=== PATIENT | male | born 1935 | race Caucasian/White ===

== ENCOUNTER 2017-04-07 17:00 | Inpatient (IN) | payer MEDICARE, BC ==
[~2017-04-07] VITALS: Ht 175.3 cm; Wt 70.0 kg
--- NOTE | ~2017-04-07 | HP ---
PATIENT'S NAME: ALEXANDR MACIAS [facility] AGE: 81 Y [address] ROOM: [address] [address] LOCATION: [facility] ADMIT DATE: 04/07/2017 History & Physical DISCHARGE DATE: FAMILY PHYSICIAN: PHYSICIAN, UNKNOWN ATTENDING PHYSICIAN: TERI HARRISON DATE OF SERVICE: CHIEF COMPLAINT: Transfer for a left femoral neck fracture. HISTORY OF PRESENT ILLNESS: The patient is an 81-year-old male who has sustained a mechanical fall while getting out of his pickup truck earlier today. He was found to have a left femoral neck fracture and was transferred to [facility] from [place] for surgical intervention. An admission/consultation was requested by Orthopedic Service for preoperative optimization. The patient unfortunately is not a very good historian. At this point, I think he has gotten some opioids for his pain. 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 Of note, the patient was worked up for "possible heart attack" in [place] 3-4 weeks ago though we do not have the results of that workup. He denies ever developing chest pain, and shortness of breath is achieved with vigorous exercise. REVIEW OF SYSTEMS: He denies any nausea, vomiting, shortness of breath, or palpitations. All systems have been reviewed and negative aside from pertinent positives mentioned above. PAST MEDICAL HISTORY: This is incomplete as the patient is not a very good historian. 1. He has prostate cancer, status post seed implantation. 2. "Arthritis," for which the patient is on prednisone. 3. A recent left total knee arthroplasty in [place]. SOCIAL HISTORY: The patient has never been a smoker and has never been a drinker and denies any other toxic habits. FAMILY HISTORY: PATIENT'S NAME: ALEXANDR MACIAS [facility] AGE: 81 Y [address] ROOM: [id number] [place], [place] [address] LOCATION: [facility] ADMIT DATE: 04/07/2017 History & Physical DISCHARGE DATE: FAMILY PHYSICIAN: PHYSICIAN, UNKNOWN ATTENDING PHYSICIAN: TERI HARRISON Reviewed and is noncontributory due to advanced age. CURRENT MEDICATIONS ARE: 1. Crestor. 2. Prednisone 5 daily. 3. Pantoprazole. 4. [place]-3 fatty acids. 5. Ascorbic acid. 6. Aspirin. 7. Calcium carbonate. 8. Cholecalciferol. 9. Dicyclomine. 10. Escitalopram. PHYSICAL EXAMINATION: VITAL SIGNS: Temperature 98.7, pulse 79, respirations 16, and saturating 93% on room air. Blood pressure was initially 181/92, but came down to 150/60 with IV morphine for his pain. GENERAL APPEARANCE: A well-developed, well-nourished, elderly male, looks younger age than stated, in no acute distress. NEUROLOGIC: Nonfocal. EYES: Pupils are equal and reactive to light. LYMPHATIC: No cervical lymphadenopathy. ENDOCRINE: No thyromegaly. LUNGS: Clear to auscultation in all shields. HEART: Regular. No appreciable murmurs, gallops, or rubs. ABDOMEN: Soft, nontender, nondistended. : No costovertebral angle tenderness. VASCULAR: 2+ pedal pulses. MUSCULOSKELETAL: Deferred. SKIN: Warm and dry. PSYCHIATRIC: Appropriate mood, cognition, and affect. STUDIES: No studies are available as of yet. ASSESSMENT AND PLAN: This is an 81-year-old male who is admitted with: 1. A mechanical fall and left femoral neck fracture. Prior to proceeding with surgery, I think it would be worthwhile to review the details of his hospitalization in [place]. We will also get an EKG, a chest x-ray, and routine labs. I think if these are unremarkable and once his hospitalization [place] is reviewed, we can proceed with surgery tomorrow. As such, we will keep the patient n.p.o. 2. Chronic steroid dependence. Will continue prednisone. We will monitor for any development of PATIENT'S NAME: ALEXANDR MACIAS [facility] AGE: 81 Y [address] ROOM: [address] [address] LOCATION: [facility] ADMIT DATE: 04/07/2017 History & Physical DISCHARGE DATE: FAMILY PHYSICIAN: , UNKNOWN ATTENDING PHYSICIAN: TERI HARRISON adrenal insufficiency and treat him if need be. 3. Accelerated hypertension. This is likely related to pain/stress of being in the hospital. We will control his blood pressure as needed if the pain control is inadequate. Additional management depend on clinical course. Time dedicated to this patient's encounter is 25 minutes. MD JAMES PEREIRA/aleksander /[id number] D: [id number] T: [id number] HISTORY & PHYSICAL
--- NOTE | ~2017-04-07 | OR ---
PATIENT'S NAME: ALEXANDR MACIAS [facility] AGE: 81 Y [address] ROOM: [place] [address] LOCATION: [facility] ADMIT DATE: 04/07/2017 OR/Procedure Report DISCHARGE DATE: FAMILY PHYSICIAN: PHYSICIAN, UNKNOWN ATTENDING PHYSICIAN: TERI HARRISON SURGEON: Ajay Perdomo MD SISAL OPERATOR: None. DATE OF PROCEDURE: 04/08/2017 PREOPERATIVE DIAGNOSIS: Left displaced basicervical fracture of the proximal femur. POSTOPERATIVE DIAGNOSIS: Left displaced basicervical fracture of the proximal femur. PROCEDURES PERFORMED: 1. Left femoral intramedullary nailing. 2. Use of intraoperative fluoroscopy, less than one hour. ANESTHESIA: General endotracheal anesthesia. FLUIDS: See anesthesia report. ESTIMATED BLOOD LOSS: Less than 50 mL. TOURNIQUET: None. SPECIMENS: None. COMPLICATIONS: None. DISPOSITION: Stable, in PACU. COUNTS: All counts were correct. IMPLANTS: Synthes trochanteric fixation nail, 11 mm diameter, 235 mm in length, with proximal lag screw and distal interlocking screw. INDICATIONS: Mr. Macias is a pleasant, 81-year-old gentleman who underwent the noted procedure above. The risks, benefits, and alternatives to pursuing surgical intervention were discussed with the patient in detail. He elected to proceed with surgery. It was discussed with him and his family. Informed consent was obtained. Anesthesia was consulted for their perioperative evaluation of the patient. I marked the left lower extremity, indicating the correct surgical site. PATIENT'S NAME: ALEXANDR MACIAS [facility] AGE: 81 Y [address] ROOM: [place] [address] LOCATION: [facility] ADMIT DATE: 04/07/2017 OR/Procedure Report DISCHARGE DATE: FAMILY PHYSICIAN: PHYSICIAN, UNKNOWN ATTENDING PHYSICIAN: TERI HARRISON DESCRIPTION OF PROCEDURE: The patient was taken from the holding area to the operating room. A time-out was performed. General endotracheal anesthesia was administered. The patient was positioned on the [place] table. A closed reduction of the hip was undertaken under fluoroscopy. The left lower extremity was then prepped and draped in a sterile fashion. A final time-out was performed. Ancef antibiotic was administered for perioperative prophylaxis. I began by introducing a wire into the tip of the greater trochanter. It was in a center-center position, confirmed fluoroscopically. I then made an incision 3 fingerbreadths proximal to the tip of the greater trochanter. This incision was carried through skin, subcutaneous tissue, muscle, and fascia, down to bone. I then introduced my opening reamer. I then placed my femoral nail. I confirmed the position of my nail fluoroscopically. I then made an incision distally for my pin for the purposes of measuring and positioned my lag screw. I confirmed that the fracture was reduced, and I confirmed the position of the lag screw, subsequently measured it, over drilled it, and placed my lag screw. I then placed my set screw at the top of the nail. I then compressed through the nail using a Robe bar. I received a near-anatomic reduction of the proximal femur fracture. I then turned my attention to the distal interlocking screw in the nail. I made a skin incision. I subsequently introduced the jig, drilled for, measured, and placed my distal interlocking screw. The jig was removed from the nail. Final fluoroscopic images of the hip revealed evidence of a near-anatomic femoral intramedullary nailing of the hip fracture. The wounds were then copiously irrigated with a normal sterile saline solution. These were then closed in layers. A Mepilex dressing was placed over the incisions. The patient was then transferred from the operating room table onto the stretcher and extubated. He was brought to the recovery room in stable condition. There were no intraoperative complications noted. IMPRESSION: The patient is status post the noted procedures above. PATIENT'S NAME: ALEXANDR MACIAS [facility] AGE: 81 Y [address] ROOM: [address] [address] LOCATION: [facility] ADMIT DATE: 04/07/2017 OR/Procedure Report DISCHARGE DATE: FAMILY PHYSICIAN: PHYSICIAN, UNKNOWN ATTENDING PHYSICIAN: TERI HARRISON PLAN: The patient will be toe-touch weightbearing on the left lower extremity. He will be instructed to rest, ice, and elevate the leg otherwise. The hospitalist will continue to manage the patient's concomitant medical comorbidities. Postoperative antibiotics will be administered per routine. Physical Therapy and Occupational Therapy will be consulted for early ambulation and prevention of deconditioning. I will continue to monitor the patient closely in the postoperative period. MD ROGELIO BUENO/aleksander /[id number] d: 04/08/17 1456 t: 04/11/17 0831, OPERATIVE SUMMARY
--- NOTE | ~2017-04-07 | DS ---
PATIENT'S NAME: ALEXANDR MACIAS [facility] AGE: 81 Y [address] ROOM: [address] [address] LOCATION: [facility] ADMIT DATE: 04/07/2017 Discharge Summary DISCHARGE DATE: 04/12/2017 FAMILY PHYSICIAN: Evan Jose MD ATTENDING PHYSICIAN: Ajay Perdomo ADMITTING DIAGNOSIS: Left mildly displaced basicervical fracture of the proximal femur. DISCHARGE DIAGNOSIS: Left mildly displaced basicervical fracture of the proximal femur. SECONDARY DIAGNOSES: 1. History of prostate cancer. 2. Osteoarthritis. 3. Prior left tibial fracture with tibial intramedullary nailing. CONSULTATION SERVICE: To the hospitalist for medical management. PROCEDURES: On April 08, 2017, the patient underwent the following procedure by Dr. Perdomo, left femoral intramedullary nailing. DISCHARGE STATUS: Good. HISTORY OF PRESENT ILLNESS: The patient is a pleasant 81-year-old male who sustained a mechanical fall while getting out of his pickup truck earlier in the day. He fell onto his left side. He was transferred to [facility] from [place] for his definitive orthopedic care. Here, he reported pain at the left hip, pain with movement of the hip, discomfort with attempted range of motion and weightbearing. Relieving factors include rest, ice, elevation, and immobilization. When seen, the patient denied any constitutional symptoms such as fevers, chills, or night sweats. He also denied any dizziness, chest pain, shortness of breath, blurred vision, nausea, vomiting, or diarrhea. He denied any previous surgery to his left hip or femur, though he does note that he had a left tibial intramedullary nailing with compartment releases of his left leg from previous tibial fracture and compartment syndrome in the left lower extremity. He reports he made a full recovery from this. He was seen by Dr. Roberts for evaluation of his left hip. HOSPITAL COURSE: The patient underwent the above prescribed procedure and tolerated the procedure well. During his hospitalization, the patient did have some acute delirium that was felt to be multifocal. He did have his medications adjusted and was treated medically during his hospitalization. The hospitalist did treat him medically during his hospitalization. The PATIENT'S NAME: ALEXANDR MACIAS [facility] AGE: 81 Y [address] ROOM: [address] [place], [place] [address] LOCATION: [facility] ADMIT DATE: 04/07/2017 Discharge Summary DISCHARGE DATE: 04/12/2017 FAMILY PHYSICIAN: Evan Jose MD ATTENDING PHYSICIAN: Ajay Perdomo patient was felt to be stable for transfer to the [facility] Bed on April 12, 2017, and was transferred at that time. MEDICATIONS: Continued medications: 1. Ascorbic acid 500 mg 3 times a day. 2. Aspirin 81 mg p.o. daily. 3. Calcium 500 mg p.o. t.i.d. 4. [place]-3 fatty acid 1000 mg p.o. daily. 5. Protonix 40 mg p.o. daily. 6. Prednisone 5 mg p.o. daily. 7. Crestor 10 mg p.o. daily. 8. Dicyclomine 20 mg 4 times per day. 9. Vitamin D3, 2000 units p.o. daily. 10. Escitalopram 10 mg p.o. daily. New medications: 1. Acetaminophen 500 mg p.o. daily p.r.n. pain. 2. Lovenox 40 mg subcu daily. 3. Seroquel 25 mg p.o. at h.s. 4. Dulcolax 10 mg as needed for constipation. 5. Milk of magnesia 30 mL p.o. as needed for constipation. 6. Seroquel 25 mg every 6 hours as needed p.r.n. anxiety. 7. Ultram 50 mg 1-2 tabs every 4 hours as needed for pain. DISCHARGE INSTRUCTIONS: The patient is to follow up with Dr. Perdomo in 2 weeks. He is to be toe-touch weightbearing. He is to undergo physical therapy and occupational therapy. He is to have CBC and BMP on April 13, 2017. Diet is as tolerated. The patient was transferred to the [facility] Bed on April 12, 2017, in good condition. MARTIN HARRISON PA-C FOR MD BILLY BUENO/aleksander /[id number] d: 04/30/17 0302 t: 05/02/17 1846, DISCHARGE SUMMARY
--- NOTE | ~2017-04-07 | HP ---
PATIENT'S NAME: ALEXANDR ALVARADO [facility] AGE: 81 Y [address] ROOM: [place] [address] LOCATION: [facility] ADMIT DATE: 04/07/2017 History & Physical DISCHARGE DATE: FAMILY PHYSICIAN: PHYSICIAN, UNKNOWN ATTENDING PHYSICIAN: TERI HARRISON DATE OF SERVICE: 04/08/2017 CHIEF COMPLAINT: Left hip and groin pain. HISTORY OF PRESENT ILLNESS: Mr. Alvarado is a pleasant 81-year-old, gentleman, who sustained a mechanical fall while getting out of this pickup truck earlier today. He fell onto his left side. He was transferred to [facility] from [place] for his definitive orthopedic care. He reports pain at the left hip, pain with movement of the hip, discomfort with attempted range of motion and weightbearing. Alleviating factors include rest, ice, elevation, and immobilization. Currently, the patient denies any constitutional symptoms such as fever, chills, or night sweats. He also denies any dizziness, chest pain, shortness of breath, blurred vision, nausea, vomiting, or diarrhea. He denies any previous surgery to the left hip or femur, though notes that he did have a tibial intramedullary nailing with compartment release of the leg from previous tibia fracture and compartment syndrome in the left lower extremity. He reports making a full recovery from this. He is here today for evaluation of the left hip. REVIEW OF SYSTEMS: A 10-point review of system is otherwise as mentioned above in the HPI. The patient's issue is musculoskeletal, and it pertains to his left lower extremity. There is pain and tenderness to palpation at the level of the left hip. PAST MEDICAL HISTORY: Prostate cancer, osteoarthritis, previous left tibia fracture and underwent tibial intramedullary nailing approximately 3 or 4 years ago with compartment release of the leg. SOCIAL HISTORY: The patient denies any alcohol, tobacco, or illicit drug use. He lives at home with his . He reports that he is an independent ambulator at baseline. FAMILY HISTORY: There is hypertension on both sides of the family. PATIENT'S NAME: ALEXANDR ALVARADO [facility] AGE: 81 Y [address] ROOM: [place] [address] LOCATION: [facility] ADMIT DATE: 04/07/2017 History & Physical DISCHARGE DATE: FAMILY PHYSICIAN: PHYSICIAN, UNKNOWN ATTENDING PHYSICIAN: TERI HARRISON ALLERGIES: NO KNOWN DRUG ALLERGIES. CURRENT MEDICATIONS: 1. Crestor. 2. Prednisone. 3. Pantoprazole. 4. [place]-3 fatty acid. 5. Ascorbic acid. 6. Aspirin. 7. Calcium carbonate. 8. Cholecalciferol. 9. Dicyclomine. 10. Escitalopram. PHYSICAL EXAMINATION: VITAL SIGNS: Temperature 98.7, pulse 79, respirations 16, saturation 93% on room air, blood pressure 150/60. GENERAL APPEARANCE: He is awake, alert, and oriented x3. He is in no acute distress. He is actively conversing with me at the bedside. HEENT: Normocephalic and atraumatic. Extraocular movements are intact. PERRLA. Moist mucous membranes. Oropharyngeal airway is clear. NECK: Supple. Trachea is in the midline. CARDIOVASCULAR: Regular, rate, and rhythm. ABDOMEN: Soft, nontender, and nondistended. CHEST: Normal and symmetric respirations observed bilaterally. PELVIS: Stable. MUSCULOSKELETAL: Left lower extremity: Focal examination of the patient's left lower extremity reveals that he is grossly neurologically intact distally. Compartments of the thigh, leg, and foot are soft. There is tenderness to palpation at the level of the greater trochanter and at the level of the groin. There is a positive log roll test. There is pain with manipulation of the limb. They are well-healed surgical incisions over the leg and consistent with previous tibial intramedullary nailing as well as compartment releases. There is full dorsiflexion, plantar flexion, and full strength at the ankle and foot. There is good capillary refill in the toes. There is palpable dorsalis pedal and posterior tibial pulses. IMAGING: Plain radiographs of the left hip revealed evidence of a basicervical fracture of the femoral neck with some displacement. LABORATORY VALUES: CBC: Hemoglobin of 12.2, hematocrit of 36.3, white blood cell count of 8.6, PATIENT'S NAME: ALEXANDR ALVARADO [facility] AGE: 81 Y [address] ROOM: [place] [address] LOCATION: [facility] ADMIT DATE: 04/07/2017 History & Physical DISCHARGE DATE: FAMILY PHYSICIAN: PHYSICIAN, UNKNOWN ATTENDING PHYSICIAN: TERI HARRISON and platelet count of 162. Chem 7: Sodium 141, potassium 4.4, chloride 108, CO2 27, BUN 20, creatinine 1.2, glucose 94. IMPRESSION: Left, mildly displaced, basicervical fracture of the proximal femur. PLAN: I had a long discussion with the patient in the presence of his family regarding his left hip. He sustained a left hip fracture. I am recommending an open reduction and internal fixation, and femoral intramedullary nailing to stabilize the hip. I discussed the risks, benefits, and alternatives of pursuing the surgical intervention with the patient and his family in detail. I discussed the risks and benefits of anesthesia, infection, bleeding, and/or injury to neurovascular structures about the left lower extremity. They expressed understanding of this. Informed consent was obtained, and the patient was elected to proceed with surgery. The hospitalist has seen and evaluated the patient. The patient should be medically cleared hopefully later this morning. He does have a remote cardiac history that had been worked up in [place] that appeared to have been ruled out. We are awaiting the records for the hospitalist to review. The patient will remain on bedrest at this point. Pain control will be in the form of Percocet and IV morphine as needed for pain. Preoperative antibiotics in the form of Ancef will be on- call to the OR. We will plan for surgery as soon as possible this morning. I have answered all the patient's questions and family's questions at the bedside this morning to their satisfaction. MD ROGELIO BUENO/aleksander /[id number] D: [id number] T: [id number] HISTORY & PHYSICAL
[2017-04-07] MEDS ORDERED: ASCORBIC ACID500 MG PO (20:33)
[2017-04-07] MEDS ORDERED: BAYER CHILD81 MG PO (20:34)
[2017-04-07] MEDS ORDERED: CRESTOR10 MG PO (20:49)
[2017-04-07] MEDS ORDERED: DICYCLOMINE HCL20 MG PO (20:51)
[2017-04-07] MEDS ORDERED: PROTONIX40 MG PO (20:52)
[2017-04-07] MEDS ORDERED: DELTASONE5 MG PO (20:53)
[2017-04-07] MEDS ORDERED: VITAMIN D-32000 UNI1 PO (20:53)
[2017-04-07] MEDS ORDERED: FISH OIL 1,0001 EACH PO (20:54)
[2017-04-07] MEDS ORDERED: OSCAL500 MG PO (20:54)
[2017-04-07] MEDS ORDERED: ESCITALOPRAM OX20 MG PO (20:55)
[2017-04-08 00:28] LABS: BASOPHIL % 0.5 %; EOSINOPHIL # 0.1 K/uL (0.0-0.5); EOSINOPHIL % 0.8 %; HEMATOCRIT 36.3 % (33.0-50.0); HEMOGLOBIN 12.2 g/dL (11.0-16.0); IMMATURE GRANULOCYTE % 0.5 %; LYMPHOCYTE # 1.1 K/uL (0.8-4.0); LYMPHOCYTE % 12.8 %; MCH 33.5 pg (27.0-34.0); MCHC 33.6 gm/dL (32.0-36.5); MCV 99.7 fl (83.0-98.0); MONOCYTE # 0.9 K/uL (0.0-1.0); MONOCYTE % 10.2 %; MPV 9.2 fl (9.4-12.4); NEUTROPHIL # (ANC) 6.5 K/uL (1.4-9.0); NEUTROPHIL % 75.2 %; NRBC % 0 /100WBC (0-0.00); PLATELET COUNT 162 K/uL (150-450); RBC 3.64 M/uL (3.50-5.50); RDW-CV 13.3 % (11.9-14.6); WBC 8.6 K/uL (4.0-11.0)
[2017-04-08 00:37] LABS: ANION GAP 10.4 (10.0-19.0); CALCIUM 8.1 mg/dL (8.5-10.5); CREATININE 1.2 mg/dL (0.6-1.3); MAGNESIUM 2.5 mg/dL (1.8-2.6); PHOSPHORUS 2.5 mg/dL (2.5-4.9); POTASSIUM 4.4 mMol/L (3.7-5.1)
--- NOTE | 2017-04-08 04:42 | NUR ---
Patient is alert and oriented x3, fell out of his pickup and has has fracture to the left hip, pain with movement, csm with in normal limits, has been taking Narco for pain control, uses urinal to void is on bedrest, not cleared for surgery,has been hypertensive since arrival, has rested well tonight
--- NOTE | 2017-04-08 04:47 | NUR ---
Patient arrived on floor at 1930 from the EMS transport, originally was in [place], he fell as he was getting out of his pickup, fractured his left hip, drove himself to the hospital, no known allergies, and daughter staying here in town, is not yet cleared for surgery
--- NOTE | 2017-04-08 16:35 | NUR ---
Introduced self and care management services to patient, and granddaughters at bedside. Lives in [place], would like to go to [facility] on discharge, will transport if able to go by vehicle. Called [facility] and left referral voicemail [phone] for Charo Vargas with info and faxed referral to her as well [phone]. [facility] will followup with her on Tuesday, pt sees Dr Jose in [place].
--- NOTE | 2017-04-08 17:22 | NUR ---
Significant Event: Off unit fro [id number]. Dressings to L) hip with marked drainage. No void since return from PACU. CSM WNL. TTWB to L) leg. [place] 1 tab last at 1600, Morphine 2mg IVP last at 1345. Moderate BM this am. Has not been out of bed at this time. Follow up:
[2017-04-08 21:24] LABS: BILIRUBIN URINE NEGATIVE (NEGATIVE); BLOOD URINE NEGATIVE /UL (NEGATIVE); COLOR URINE AMBER (YELLOW); GLUCOSE URINE NEGATIVE (NEGATIVE); KETONE URINE 15 mg/dL (NEGATIVE); LEUKOCYTES URINE 100 /UL (NEGATIVE); NITRITE URINE POSITIVE (NEGATIVE); PROTEIN URINE 30 mg/dL (NEGATIVE); UROBILINOGEN URINE 1 mg/dL (NORMAL)
[2017-04-08 21:28] LABS: TURBIDITY URINE CLEAR (CLEAR)
[2017-04-08 21:30] LABS: BACTERIA URINE MANY (NEGATIVE); MUCUS URINE 1+ (NEGATIVE); RBC URINE NEGATIVE #/HPF (NEGATIVE)
[2017-04-08 21:31] LABS: WBC CLUMPS URINE FEW (NEGATIVE)
--- NOTE | 2017-04-09 05:17 | NUR ---
Significant Event: Oriented X3 at beginning of shift. Increased confusion noted throughout night. Pt disoriented to place, once reoriented to GSH, pt isn't able to recall the reason he is here. Reoriented frequently. Oriented to person and time. Pt does try to hide confusion by answering "yes/no" to questions. Voided x 2 small amounts of beginning of shift, bladder scan for 414 ml. Straight cath attempted multiple times with no success. MD notified, would like us to wait to attempt straight cath until bladder scan >700. Pt has sense voided another 175 ml, total of 275 ml out this shift. Bladder scan this am of 318 ml. Urine herminia in color. IV fluids continue to run at 80 ml/hr. CSM WNL, denies numbness tingling. Dressing has moderate amount of bloody drainage. Large hematoma, increasing slowly in size to L) hip. Repositions without difficulty. Ice to hip. Was up to bedside with 2 person assist, gait belt and walker. TTWB. Pt was unsteady. Trying to only given Tylenol for pain, tolerating pain well. On 2L 02, takes off nasal cannula frequently. Follow up: Monitor urine output.
[2017-04-09 05:57] LABS: HEMOGLOBIN 8.7 g/dL (11.0-16.0)
[2017-04-09 06:01] LABS: HEMATOCRIT 26.8 % (33.0-50.0)
[2017-04-09 17:31] LABS: HEMATOCRIT 29.9 % (33.0-50.0); HEMOGLOBIN 9.7 g/dL (11.0-16.0)
--- NOTE | 2017-04-09 17:32 | NUR ---
Significant Event: Pt Aox3. Was confused last night. IV intact. VSS, CSM WNL. TTWB L). Up with one assist, walker and gait belt. Takes PO well. Pain well controlled. Voids without difficulty and had moderate BM this shift. Large hematoma to left hip, Lovenox held for today. HgB at 1700, call results. Dressing D/I. Would like to go to SNF instead of home. Push IS. Follow up:
--- NOTE | 2017-04-10 04:01 | NUR ---
Patient is alert and orientated to self, can be very confused at times, at 0130 heard patient in room due to being in room down the dobbs, when i got to the patients room he was sitting on floor and the bed alarm sounded,three side rails were up on the bed, patients feet were under the bed and he was facing the bed, no apparent injuries, patient assisted back to bed using the lift, notified daughter Katy of fall, also notified both DR SOTO who ordered 12.5mg of seroquel times one which was given and notified DR THORNTON who ordered and xray of the hip to bed done in the morning, patient has no complaints of pain. csm with in normal limits, is very anxious and figets alot, a second bed alarm was placed in his bed and he will need to be moved closer to the nurses station when a bed is available
[2017-04-10 05:31] LABS: BASOPHIL % 0.5 %; EOSINOPHIL # 0.2 K/uL (0.0-0.5); EOSINOPHIL % 2.7 %; HEMATOCRIT 26.3 % (33.0-50.0); HEMOGLOBIN 8.5 g/dL (11.0-16.0); IMMATURE GRANULOCYTE # 0.1 K/uL (0.0-0.3); IMMATURE GRANULOCYTE % 0.6 %; LYMPHOCYTE % 10.7 %; MCH 32.8 pg (27.0-34.0); MCHC 32.3 gm/dL (32.0-36.5); MCV 101.5 fl (83.0-98.0); MONOCYTE # 0.9 K/uL (0.0-1.0); MONOCYTE % 9.6 %; MPV 9.1 fl (9.4-12.4); NEUTROPHIL # (ANC) 6.7 K/uL (1.4-9.0); NEUTROPHIL % 75.9 %; NRBC % 0 /100WBC (0-0.00); PLATELET COUNT 132 K/uL (150-450); RDW-CV 13.5 % (11.9-14.6); WBC 8.8 K/uL (4.0-11.0)
[2017-04-10 05:32] LABS: RBC 2.59 M/uL (3.50-5.50)
--- NOTE | 2017-04-10 09:22 | NUR ---
Significant Event: Pt Alert but not oriented to place or time. Fell last night. Fall precautions in place. Up in recliner with Tabs monitor and is at her side. wants a brain scan to see if he has alzheimers. Left hip still has large hematoma, dressing has marked drainage. Foot pumps on. Taking PO well. Up with one assist, walker and gait belt. Plans to transfer to SNF when placement is made. Wants Jody MALONE Follow up:
--- NOTE | 2017-04-10 15:39 | NUR ---
Significant Event:Took over cares at 1000. Refuses need for pain meds. Dressing to left hip d/i with old drainage noted. Up with 1 assist. Very confused most of the time. Bed alarm on at all times. Moved to room 3204 to be closer to the nurses station. at bedside but she worries his confusion is worse when she is here. Follow up:
--- NOTE | 2017-04-11 04:12 | NUR ---
Patient very confused and anxious only orientated to self, trys to get out of bed repeatedly had a fall the previous night, was given 50mg of seroquel this evening which didnt seem to help and then at 2300 was given 1mg of ativan which calmed him down and he has been resting well, dressings to hip have old bloody drainage present, he has a large hematoma to hip, side, groin and nimco area from surgery, csm with in normal limits, pain has been under control taking percocet for pain,
[2017-04-11 05:31] LABS: BASOPHIL % 0.3 %; EOSINOPHIL # 0.2 K/uL (0.0-0.5); EOSINOPHIL % 2.5 %; HEMATOCRIT 24.9 % (33.0-50.0); HEMOGLOBIN 8.1 g/dL (11.0-16.0); IMMATURE GRANULOCYTE # 0.1 K/uL (0.0-0.3); IMMATURE GRANULOCYTE % 1.1 %; LYMPHOCYTE % 11.9 %; MCH 33.3 pg (27.0-34.0); MCHC 32.5 gm/dL (32.0-36.5); MCV 102.5 fl (83.0-98.0); MONOCYTE % 12.1 %; MPV 8.9 fl (9.4-12.4); NEUTROPHIL # (ANC) 5.7 K/uL (1.4-9.0); NEUTROPHIL % 72.1 %; NRBC % 0 /100WBC (0-0.00); PLATELET COUNT 141 K/uL (150-450); RBC 2.43 M/uL (3.50-5.50); RDW-CV 13.7 % (11.9-14.6)
--- NOTE | 2017-04-11 10:49 | NUR ---
Reviewed chart and called and faxed update to referral I made to Charo at [facility]. She will review all the information and let me know if they can accept tomorrow or whenever ready for discharge. Dr Jose is pt physician in [place].
--- NOTE | 2017-04-11 15:49 | NUR ---
Called Charo at [facility], asked how pt did with therapy today, ready therapy note to her, disoriented to place and time, was CGA and went 15 feet with TTWB, gait belt and front wheeled walker. Charo said she will talk with Dr Jose in the morning but if confusion improved tonight and tomorrow am they will accept tomorrow. I will put Dr Jose's number on the chart for physician to call tomorrow, I will call Charo in the morning to review pt chart.
--- NOTE | 2017-04-11 16:45 | NUR ---
Pt is alert, oriented but forgetful. He is much better than his restlessness, confusion this morning. He is on O2 at 2 Liters. RT is doing a respiratory therapay severity scoring this afternoon. He can have serequel prn. He has been cooperative today. Has sensitive tabs alarm and movement in bed sets it off. Bed alarm also on. Pt likes to sit on edge of bed to urinate in urinal. He is incontinent if it takes too long. He is TTWB on left. VS are stable. Changed to tramadol for pain and had it at noon. States comfortable now. Left hip has 2 mepilex dressings on that were changed this AM. They are mostly saturated at this time. He has a large hematoma to hip, thigh and has ecchymosis penis. He has been up chair x2 with 2 asst and pivot transfer. He uses IS at 1500. He is high fall risk from fall 2 days ago. Hip xray done at that time that Dr Mcgraw said was ok. Pt will possibly go to [facility] tomorrow if he has an ok night per case assembler. Pts has been here most of shift.
--- NOTE | 2017-04-12 03:54 | NUR ---
Pt. alert but not always oriented to time or place. RA. Been spot checking O2 as it rides close to 90%. Did not use O2 this shift. VSS. HIGH fall risk - bed alarm on and plugged into outlet with 3 bedsides up. 2 assist with pivot - toe touch weight bearing. Uses urinal at bedside. Regular diet. L) Hip has 2 mepilex dressings on - changed this shift. Very large hematoma on his left hip as well. Leaking IV - No IV access per MD order. Pt. will most likely transfer to [place] today. Cooperative this shift. Slept well throughout night.
[2017-04-12 05:30] LABS: HEMATOCRIT 24.7 % (33.0-50.0); HEMOGLOBIN 8.2 g/dL (11.0-16.0)
--- NOTE | 2017-04-12 10:17 | NUR ---
Called and left voicemail for Charo at [facility] that pt had a better night and provided update from shift summary last night and that he is ready to come to [facility] today if they will accept. Waiting call back from her.
--- NOTE | 2017-04-12 12:28 | NUR ---
A-SCREENED D/T LOS; S/P L)HIP FX. POSSIBLE TO D/C TO [facility] TODAY HT: 69 IN. WT: 70.0 KG. BMI: 22.8 LABS REVIEWED MEDS: VIT C, SEROQUEL, ULTRAM, PRN BOWEL MEDS, MORPHINE, DELTASONE, PROTONIX DIET RX: REGULAR. PO INTAKE 50-100% EST NUTR NEEDS: 0924-8124 KCALS (25-30 KCALS/KG) 70-84 GM PROTEIN (1.0-1.2 GM/KG) 1 ML FLUID/KCAL D-NOT AT NUTRITION RISK; NO NUTRITION DX IDENTIFIED I-CONTINUE W/CURRENT DIET RX M/E-WILL ASSIST NEEDED
--- NOTE | 2017-04-12 13:33 | NUR ---
Talked with Camila Duggan APRN and she called Dr Jose who accepted. I talked with Charo at [facility] and she talked with Dr Jose also and they are okay to accept. I called Dr Perdomo, he is okay with pt going to [facility] today and does not need to see pt before he leaves, would like to see him in 2 weeks as outpt. Will put that on dc orders. I called Dr Greene and he is on his way over to see pt to finish dc orders. Gave phone number to nurse to call charge nurse at [facility]. Pt and still want him to transport via ambulance, feel with his ttwb will be safer. I called NITZA gracia, she did some adjusting of ambulance crews transporting patients and [facility] ambulance crew is here and will take patient back to [facility] when ready, should be ready within the hour.
--- NOTE | 2017-04-12 14:04 | NUR ---
PT ADMIT ON 04/07, L HIP FX. HAD A FALL GETTING OUT OF TRUCK. ON 04/08 L HIP NAILING, TFN. ALSO HAD A FALL ON 04/10 WHILE HOSPITALIZED. MEPILEX DRESSING TO L HIP, SOME SHADOW DRAINAGE. CHANGED BY WALKING DRAGLINE OPERATOR. LARGE HEMATOMA TO L HIP. PT IS TTWB TO LLE, AMBULATES WITH 1PA, GAITBELT AND WALKER. PRN MILK OF MAG GAVE THIS AM WITH SMALL RESULTS SO FAR. PRN ULTRAM FOR PAIN AT 0921, RELIEF NOTED. HAS BEEN RECIEVING SCHEDULED TYLENOL WELL. PT HAS NO IV ACCESS. HAS BEEN ALERT AND ORIENTED X3 THIS SHIFT. CAN BE FORGETFUL. TOLERATING A REGULAR DIET. LAST SET OF VITALS: 93% RA, 85HR, 169/54, 97.8 TYMPANIC. TOOK BELONGINGS AND GOT A HEAD START BACK TO [facility].
--- NOTE | 2017-04-12 15:32 | NUR ---
NURSE TO NURSE REPORT CALLED TO [facility] AT 1530. I HAVE REVIEWED AND AGREE WITH CHARTING COMPLETED BY [facility] STUDENT OUMAR CORTEZ RN
== END 2017-04-12 14:39 | disposition swing bed (61) | DRG 480 ==
LOC: GMSU 19:19 → G3N 19:19 → GMSU 04-09 15:45
PROVIDERS: Family Medicine; Hospitalist; Internal Medicine; ADMIT Orthopaedic Surgery Adult Reconstructive Orthopaedic Surgery
PROC: 0QS736Z Reposition Left Upper Femur with Intramedullary Internal Fixation Device, Percutaneous Approach (ICD-10-PCS; principal; 2017-04-08)
DX: S72.042A Displaced fracture of base of neck of left femur, initial encounter for closed fracture (principal); G93.40 Encephalopathy, unspecified; J96.11 Chronic respiratory failure with hypoxia; J44.9 Chronic obstructive pulmonary disease, unspecified; D62 Acute posthemorrhagic anemia; J96.12 Chronic respiratory failure with hypercapnia; N18.3 Chronic kidney disease, stage 3 (moderate); R33.9 Retention of urine, unspecified; I12.9 Hypertensive chronic kidney disease with stage 1 through stage 4 chronic kidney disease, or unspecified chronic kidney disease; Z79.52 Long term (current) use of systemic steroids; Z85.46 Personal history of malignant neoplasm of prostate; M19.90 Unspecified osteoarthritis, unspecified site; V58.4XXA Person boarding or alighting a pick-up truck or van injured in noncollision transport accident, initial encounter
CPT/HCPCS: C1713; J0690; J1650; J1720; J2060; J2250; J2270; J2405; J3010; J3480; J7030; J7512

== ENCOUNTER → 2017-04-12 | Outpatient (CLI) | payer MEDICARE, BC ==
[~2017-04-12] MED LIST: ASCORBIC ACID500 MG PO; BAYER CHILD81 MG PO; CRESTOR10 MG PO; DELTASONE5 MG PO; DICYCLOMINE HCL20 MG PO; ESCITALOPRAM OX20 MG PO; FISH OIL 1,0001 EACH PO; OSCAL500 MG PO; PROTONIX40 MG PO; VITAMIN D-32000 UNI1 PO
== END | disposition disaster alternative care site (69) ==
LOC: GAMB 14:43
DX: S79.912A Unspecified injury of left hip, initial encounter (principal); S72.002A Fracture of unspecified part of neck of left femur, initial encounter for closed fracture; G93.40 Encephalopathy, unspecified; J44.9 Chronic obstructive pulmonary disease, unspecified; Z85.46 Personal history of malignant neoplasm of prostate; Z96.653 Presence of artificial knee joint, bilateral; Z79.82 Long term (current) use of aspirin; Z79.01 Long term (current) use of anticoagulants; Z79.899 Other long term (current) drug therapy; W19.XXXA Unspecified fall, initial encounter
CPT/HCPCS: A0422; A0425; A0428